=== PATIENT | female | born 1930 | race Caucasian/White ===

== ENCOUNTER 2017-07-02 12:09 | Emergency (ER) | payer OTHER ==
[~2017-07-02] VITALS: Ht 144.8 cm; Wt 57.6 kg
== END 2017-07-02 16:15 | disposition home or self-care (01) ==
LOC: ER 12:09 → EDBD 12:20 → ER 16:15
DX: M65.88 Other synovitis and tenosynovitis, other site (principal)

== ENCOUNTER 2017-07-05 15:49 | Outpatient (CLI) | payer OTHER | END 2017-07-05 15:54 | disposition home or self-care (01) | LOC: RAD 15:49 | DX: M25.531 Pain in right wrist (principal); M79.631 Pain in right forearm ==

== ENCOUNTER 2018-01-16 11:58 | Outpatient (CLI) | payer OTHER | END 2018-01-16 12:09 | disposition home or self-care (01) | LOC: RAD 501 11:58 | DX: M19.071 Primary osteoarthritis, right ankle and foot (principal); M19.072 Primary osteoarthritis, left ankle and foot ==

== ENCOUNTER 2018-04-07 19:38 | Emergency (ER) | payer OTHER ==
[~2018-04-07] VITALS: Ht 147.3 cm; Wt 47.2 kg
[2018-04-08] MEDS ORDERED: ZOFRAN ODT4 MG PO (01:45)
[2018-04-08] MEDS ORDERED: CEFTIN250 MG/5 M PO (01:45)
[2018-04-08] MEDS ORDERED: PEPCID40 MG PO (01:45)
== END 2018-04-08 01:38 | disposition home or self-care (01) ==
LOC: ER 19:38
DX: K52.89 Other specified noninfective gastroenteritis and colitis (principal); N39.0 Urinary tract infection, site not specified

== ENCOUNTER → 2018-10-22 | Outpatient (CLI) | payer OTHER ==
[~2018-10-22] MED LIST: CEFTIN250 MG/5 M PO; PEPCID40 MG PO; ZOFRAN ODT4 MG PO
== END | disposition home or self-care (01) ==
LOC: MAMO-SONO 14:47
DX: N64.59 Other signs and symptoms in breast (principal)

== ENCOUNTER → 2018-11-10 | Outpatient (CLI) | payer OTHER | END | disposition home or self-care (01) | LOC: NUCLEAR 10:00 | DX: I87.2 Venous insufficiency (chronic) (peripheral) (principal); I73.9 Peripheral vascular disease, unspecified; M81.0 Age-related osteoporosis without current pathological fracture ==

== ENCOUNTER 2018-11-11 10:59 | Outpatient (CLI) | payer OTHER | END 2018-11-11 11:03 | disposition home or self-care (01) | LOC: NUCLEAR 10:59 | DX: I73.9 Peripheral vascular disease, unspecified (principal); I87.2 Venous insufficiency (chronic) (peripheral) ==

== ENCOUNTER 2020-06-04 22:17 | Emergency (ER) | payer OTHER ==
[~2020-06-04] VITALS: Ht 147.3 cm; Wt 51.3 kg
== END 2020-06-04 23:04 | disposition home or self-care (01) ==
LOC: ER 22:17
DX: I80.8 Phlebitis and thrombophlebitis of other sites (principal); G30.8 Other Alzheimer's disease; F02.80 Dementia in other diseases classified elsewhere, unspecified severity, without behavioral disturbance, psychotic disturbance, mood disturbance, and anxiety

== ENCOUNTER 2020-06-05 11:41 | Emergency (ER) | payer OTHER ==
[~2020-06-05] VITALS: Ht 127 cm; Wt 51.7 kg
== END 2020-06-05 16:06 | disposition home or self-care (01) ==
LOC: ER 11:41
DX: I70.293 Other atherosclerosis of native arteries of extremities, bilateral legs (principal); I87.2 Venous insufficiency (chronic) (peripheral); I86.8 Varicose veins of other specified sites; M79.605 Pain in left leg; M79.604 Pain in right leg

== ENCOUNTER 2020-08-14 17:27 | Emergency (ER) | payer OTHER ==
[~2020-08-14] VITALS: Ht 149.9 cm; Wt 54.0 kg
== END 2020-08-14 20:29 | disposition home or self-care (01) ==
LOC: ER 17:27
DX: S80.01XA Contusion of right knee, initial encounter (principal); S90.411A Abrasion, right great toe, initial encounter; W18.39XA Other fall on same level, initial encounter; Y93.89 Activity, other specified; Y92.89 Other specified places as the place of occurrence of the external cause; Y99.8 Other external cause status